=== PATIENT | female | born 1985 | race Asian ===

== ENCOUNTER 2020-07-30 07:38 | Emergency (ER) | payer OTHER, SELFPAY ==
[2020-07-30 08:06] VITALS: BP 127/83; PULSE 99; RESP 18; TEMP 37.5; O2SAT 99; BMI 27.4
--- NOTE | 2020-07-30 08:14 | ED_ITS ---
HPI - URI/Sore Throat General Chief Complaint: Upper Respiratory Symptoms Stated Complaint: covid symptoms Time Seen by Provider: 07/30/20 08:14 Source: patient Mode of arrival: ambulatory Limitations: no limitations History of Present Illness HPI Narrative: Patient went to a constitution party 7 days ago and then the mall 2 [place], now with cough, sore throat, myalgias and headache MD elicited complaint: sore throat, nasal congestion and other (myalgias) Onset (ago): day(s) Consistency: constant Severity: mild Context: sick contacts Associated symptoms: denies other symptoms Related Data Allergies Allergy/AdvReac Type Severity Reaction Status Date / Time No Known Allergies Allergy Unverified 05/13/20 17:20 Review of Systems Constitutional: Constitutional: Reports no additional constitutional complaints Eyes: Eyes: Reports no additional eye complaints ENT: Denies dizziness Cardiovascular: Cardiovascular: Reports no additional cardiovascular complaints Respiratory: Respiratory: Reports as per HPI Gastrointestinal: Gastrointestinal: Reports no additional gastrointestinal complaints Genitourinary: Genitourinary: Reports no additional female genitourinary complaints Musculoskeletal: Musculoskeletal: Reports no additional musculoskeletal complaints Integumentary/Breasts: Skin/Breast: Denies rash Neurologic: Reports system reviewed and no additional complaints, except as documented, Denies dizziness and Denies Sensory deficit (Neuro) Psychiatric: Psychiatric: Denies anxiety Physical Exam Vital Signs: Vital Signs: Last Vital Signs Temp 99.5 F 07/30/20 08:06 Pulse 99 07/30/20 08:06 Resp 18 07/30/20 08:06 BP 127/83 07/30/20 08:06 Pulse Ox 99 07/30/20 08:06 Body Mass Index 27.4 Const: General: healthy appearing Nutritional Appearance: average body habitus Orientation/consciousness: oriented to person and patient oriented x3 Limitations: no limitations HENMT: Head: Yes normal to inspection Ears: external ears normal General nose exam: Normal external nose present Mouth: Normal oral and palatal mucosa present and oropharynx normal Throat: Yes posterior oropharynx normal Eyes: General: appearance normal, both eyes and all related structures Neck: Other: supple Neck: Yes normal visual inspection Chest: Chest palpation & inspection: normal inspection of the chest Resp: Auscultation: clear to auscultation bilaterally Cardio: Jugular venous distension: no JVD Rate: regular rate Rhythm: regular rhythm Heart sounds: S1 normal heart sound present and S2 normal heart sound present GI: Inspection: Yes normal to inspection Palpation (GI): Soft to palpation, nontender and No hepatosplenomegaly present Auscultation: normal bowel sounds : General: Yes no CVA tenderness Back/Spine/Pelvis: Back: no CVA tenderness Skin: General skin exam: no rashes or lesions noted Neuro: General: oriented to person and patient oriented x3 Cranial nerves: Yes CN's II-XII intact bilaterally Motor exam (neuro): 5/5 motor strength present throughout Sensory Exam: No Sensory deficit (Neuro) Extrem: General: Yes normal to inspection Psych: Appearance: grossly normal Course Course Course Narrative: patient with likely COVID will test MDM - URI/Sore Throat MDM Narrative Medical decision making narrative: Normal vitals, not toxic, will dc home Differential Diagnosis Differential diagnosis: Likely upper respiratory infection Discharge Plan Discharge Clinical Impression: COVID-19 Upper respiratory infection Qualifiers: URI type: unspecified viral URI Qualified Code(s): J06.9 - Acute upper respiratory infection, unspecified Patient Disposition: Home, Self-Care Instructions: COVID-19 (Coronavirus Disease 2019) (ED) Referrals: Physician,None [Primary Care Provider] - 2 days
== END 2020-07-30 08:28 | disposition home or self-care (01) ==
PROVIDERS: Emergency Provider Emergency Medicine
DX: U07.1 COVID-19 (principal); J06.9 Acute upper respiratory infection, unspecified; R05 Cough; R51.9 Headache, unspecified; M79.10 Myalgia, unspecified site
CPT/HCPCS: 99283; U0003

== ENCOUNTER 2020-08-08 16:04 | Emergency (ER) | payer OTHER, SELFPAY ==
--- NOTE | 2020-08-08 16:13 | XR_ITS ---
EXAMINATION: XR CHEST CLINICAL INFORMATION: Positive Covid status with shortness of breath COMPARISON: None TECHNIQUE: Frontal view of the chest was obtained. FINDINGS: Normal cardiomediastinal silhouette. Mild hypoinflation of the lungs. No focal consolidation. No pleural effusion or pneumothorax. No acute osseous abnormality. XR/XR chest 1V IMPRESSION: Low lung volumes. No acute disease.
[2020-08-08 16:48] VITALS: BP 131/79; PULSE 90; RESP 20; TEMP 37; O2SAT 99; BMI 27.4
[2020-08-08] MEDS: guaiFEN/Codeine SF 200/20/10ML 10 ML LIQUID PO (17:04)
[2020-08-08] MEDS: dexAMETHasone 2 MG TABLET 10 MG PO (17:04)
--- NOTE | 2020-08-08 17:12 | ED.URI ---
HPI - URI/Sore Throat General Chief Complaint: Upper Respiratory Symptoms Stated Complaint: COVID POS Time Seen by Provider: 08/08/20 16:13 Source: patient Mode of arrival: ambulatory Limitations: no limitations History of Present Illness HPI Narrative: Patient otherwise healthy got COVID positive on 07/30 been doing fine for last 4 days having low-grade fever and increased dry cough and shortness of breath especially on ambulation patient checked her pulse ox dropped to 91% and then immediately improved to 93% on arrival patient was saturating 98% at room air MD elicited complaint: fever and cough Related Data Previous Rx's Medication Instructions Recorded benzonatate [Tessalon Perles] 100 mg PO TID PRN #20 cap 08/08/20 dexamethasone [Decadron] 6 mg PO DAILY #7 tab 08/08/20 Allergies Allergy/AdvReac Type Severity Reaction Status Date / Time No Known Allergies Allergy Unverified 05/13/20 17:20 Review of Systems Review of Systems: REVIEW OF SYSTEMS: Pertinent positives and negatives are stated above in the history. GEN: no fevers, chills, fatigue HEENT: no nasal congestion, sore throat, ear pain NEURO: no headache, dizziness, focal weakness PULM: Dry cough with shortness of breath CV: no chest pain, palpitations, LE edema ABD: no abdominal pain, nausea, vomiting, diarrhea : no dysuria, urgency, frequency SKIN: no rash ROS otherwise negative x 10 PMFSH Past Medical History Medical History Cholecystectomy planned Social History Social History Advance Directives: No Advance Directives Information Provided: No Physical Exam Vital Signs: Vital Signs: Last Vital Signs Temp 98.6 F 08/08/20 16:48 Pulse 90 08/08/20 16:48 Resp 20 08/08/20 16:48 BP 131/79 08/08/20 16:48 Pulse Ox 99 08/08/20 16:48 Body Mass Index 27.4 Appearance: Alert. Oriented X3. No acute distress. Eyes: Pupils equal, round and reactive to light. ENT: Pharynx normal. Neck: Normal inspection. Neck supple. CVS: Normal heart rate and rhythm. Pulses normal. Respiratory: No respiratory distress. Breath sounds normal. Frequent dry cough Abdomen: Soft and nontender. Skin: Skin warm and dry. Normal skin color. Normal skin turgor. Extremities: No lower extremity edema. Good range of movement Neuro: Oriented X 3. No motor deficit. No sensory deficit. MDM - URI/Sore Throat MDM Narrative Medical decision making narrative: Patient COVID positive chest x-ray negative for any acute infiltrate on exertion patient feels short of breath to 91% but at resting it improved to 98% at this time there is no x-ray findings of worsening of COVID will give her a course of Decadron and cough syrup Lab Data Attestation: I reviewed the patient's lab results. Discharge Plan Discharge Clinical Impression: COVID-19 Patient Disposition: Home, Self-Care Instructions: COVID-19 (Coronavirus Disease 2019) (ED) Additional Instructions: Tylenol for fever, cough syrup as advised. Social distancing is advised. Take medication as prescribed Prescriptions: New dexamethasone [Decadron] 6 mg tablet 6 mg PO DAILY Qty: 7 RF: 0 benzonatate [Tessalon Perles] 100 mg capsule 100 mg PO TID PRN (Reason: cough) Qty: 20 RF: 0
== END 2020-08-08 17:26 | disposition home or self-care (01) ==
PROVIDERS: Emergency Provider Internal Medicine
DX: U07.1 COVID-19 (principal); R50.9 Fever, unspecified; R05 Cough; Z79.899 Other long term (current) drug therapy
CPT/HCPCS: 71045; 99283; J8540

== ENCOUNTER 2022-07-19 18:05 | Outpatient (REF) | payer OTHER, SELFPAY ==
[2022-07-19 18:56] LABS: Influenza A PCR POSITIVE (Negative); Influenza B PCR NEGATIVE (Negative); Resp Syncy Virus RNA Qual PCR NEGATIVE (Negative); SARS COV2 PCR INHOUSE NEGATIVE (Negative)
== END 2022-07-19 18:06 | disposition home or self-care (01) ==
LOC: HO.LNP 18:05
PROVIDERS: Visit Provider Internal Medicine
DX: Z20.822 Contact with and (suspected) exposure to COVID-19 (principal); R43.9 Unspecified disturbances of smell and taste
CPT/HCPCS: 0241U

== ENCOUNTER 2024-02-27 21:59 | Emergency (ER) | payer OTHER, SELFPAY ==
[2024-02-27 22:13] VITALS: BP 140/77; PULSE 90; RESP 18; TEMP 36.8; O2SAT 100; BMI 32.1
--- OUTSIDE RECORDS SUMMARY | 2024-02-28 03:10 | XMS_ITS | Continuity of Care Document ---
Author Organization [facility] Address [address] [place] [address], [address] [place] [address]- Care Team Providers Care Peeled Potato Inspector Name Role Phone Celestina Lincoln MD Primary Care Physician Encounter [facility] Date(s): 05/22/23 - 06/21/23 [facility] [address] [facility], [address] [place] [address]- Allergies, Adverse Reactions, Alerts No Known Medication Allergies Medications Magnesium Magnesium, 0 Refills, Maintenance, 05/25/23 8:45:00 EDT Start Date: 05/25/23 Status: Ordered omeprazole 40 mg oral enteric coated capsule 90 each, 0 Refill(s), TAKE 1 CAPSULE (40 MG TOTAL) BY MOUTH DAILY., 0 Refills, 05/25/23 8:41:00 EDT, Partial fill upon patient request if the prescription is for a schedule II opioid drug. Start Date: 05/25/23 Status: Ordered scopolamine 1 mg/72 hr transdermal film, extended release See Instructions, apply to skin behind the ear at bedtime the night before your procedure. remove patch after 72 hours. wash hand carefully after handling, # 1 patch, 0 Refills, Acute 07/24/23 13:27:00 EST, 06/03/23 13:25:00 EDT, [facility]/pharmacy #[id number], P... Start Date: 06/03/23 Stop Date: 07/24/23 Status: Ordered Slow Fe (as elemental iron) 45 mg oral tablet, extended release 0 Refill(s), 0 Refills, 05/25/23 8:41:00 EDT, Partial fill upon patient request if the prescriptionis for a schedule II opioid drug. Start Date: 05/25/23 Status: Ordered Vitamin D3 1000 intl units oral tablet 0 Refill(s), 0 Refills, 05/25/23 8:42:00 EDT, Partial fill upon patient request if the prescriptionis for a schedule II opioid drug. Start Date: 05/25/23 Status: Ordered Problem List Condition Confirmation Course Effective Dates Status H ealth Status Informant Cobalamin deficiency Confirmed 02/28/23 Active Gastroesophageal reflux disease without esophagitis 1 Confirmed 06/28/21 Active Impaired glucose tolerance Confirmed 06/28/21 Active Iron deficiency anemia 2 Confirmed 06/28/21 Active Mixed hyperlipidemia 3 Confirmed 11/30/21 Active Obese class I Confirmed Active Primary female infertility Confirmed Active Right upper quadrant pain 4 Confirmed 06/28/21 Active Steatosis of liver 5 Confirmed 07/14/21 Active Vitamin D deficiency 6 Confirmed 06/28/21 Active 1Outside Source Comment: Last Assessment & Plan: Has been on proton pump inhibitor for some time. Have asked her to try to cut back after Ramadan to 40 mg alternating with 20 mg and increase the frequency of the 20 mg until she vy 20 mg a day. If she remains stable on this have asked her to consider alternating the proton pump inhibitor with an H2 receptor foreign [Pepcid 40 mg] and follow similar schedule. 2Outside Source Comment: Last Assessment & Plan: Last blood work showed borderline hematocrit and borderline iron studies. She recently had a prolonged 20-day. Followed by significant fatigue. I have asked her to take iron supplements with Colace on a regular basis in the form of SloFe 3Outside Source Comment: Last Assessment & Plan: Due for repeat labs ordered 4Outside Source Comment: Last Assessment & Plan: Status post cholecystectomy in 2019. Since that time she states that she has persistent mild in chronic discomfort in the right upper quadrant. She has told this to her providers per patient. Has never had any imaging done to assess any retained stone. Unsure of last liver function test. Will order LFTs as well as ultrasound of abdomen. Examination shows that she is mildly tender in the right upper quadrant. 5Outside Source Comment: Overview: Per pcp notes [place] per ultrasound 09/07/20 6Outside Source Comment: Last Assessment & Plan: To check vitamin D levels now Social History Social History Type Response Smoking Status Never (less than 100 in lifetime) entered on: 05/25/23 Sex Patient Care team information Care Team Personnel Name: Celestina Lincoln MD Position: Reference Physician Member Role: PCP Address: Address: [address] [place], [place] [id number] [facility] [address] Care Team Related Persons Name: PANTERA WEST Address: home [address] [place] [id number]
--- OUTSIDE RECORDS SUMMARY | 2024-02-28 03:10 | XMS_ITS | Continuity of Care Document ---
Author Organization [facility] Address [address] [place] [address]- Care Team Providers Care Costuming Supervisor Name Role Phone Latonia GARNER, Celestina Primary Care Physician [phone] [place] [facility] Date(s): 06/29/23 - 07/29/23 [facility] [address] [place] [address]- Attending Physician: Juan Antonio Hall Admitting Physician: Juan Antonio Hall Referring Physician: Admtr, [id number] Allergies, Adverse Reactions, Alerts No Known Medication [...] opioid drug. Start Date: 05/25/23 Status: Ordered Slow Fe (as elemental iron) [...] Care team information Care Team Personnel Name: Latonia GARNER, Celestina Position: Reference Physician Member Role: PCP Address: Address: [facility] [address] [place] [address]- [place] Care Team Related Persons Name: PANTERA WEST Address: home [address] [place] [id number]
--- OUTSIDE RECORDS SUMMARY | 2024-02-28 03:10 | XMS_ITS | Continuity of Care Document ---
Author Organization [facility] Address [address] [place] [address]- Care Team Providers Care Regulatory Compliance Director Name Role Phone Celestina Lincoln MD Primary Care Physician [phone] Encounter [facility] [place] [facility] [id number] Date(s): 06/01/23 - 07/29/23 [facility] [address] [place] [address]- Attending Physician: Maggie Hart MD Allergies, Adverse Reactions, Alerts No Known Medication [...] Reference Physician Member Role: PCP Address: Address: [address] [place] [address] [address] [facility] [address] [place] [address]- Care Team Related Persons Name: PANTERA WEST Address: home [address] [place] [id number]
--- OUTSIDE RECORDS SUMMARY | 2024-02-28 03:10 | XMS_ITS | Continuity of Care Document ---
Author Organization [facility] ter Address [address] [place] [address]- Care Team Providers Care Crt Name Role Phone Latonia GARNER, Celestina Primary Care Physician Encounter [facility] [place] Date(s): 06/14/23 - 06/14/[address] [address]- Discharge Disposition: A-D/C Home Attending Physician: Maggie Hart MD Admitting Physician: Maggie Hart MD Referring Physician: Maggie Hart MD Allergies, Adverse Reactions, [...] Acute 07/24/23 13:27:00 EST, 06/03/23 13:25:00 EDT, [facility]/pharmacy #[id number], P... Start Date: 06/03/23 Stop Date: [...] Plan: To check vitamin D levels now Procedures Procedure Date Related Diagnosis Body Site Status Hysteroscopy, surgical; with sampling (biopsy) of endometrium and polypectomy, with D & C 06/14/23 Complete d Vital Signs Most recent to oldest [Reference Range]: 1 2 3 Height 160 cm (06/14/23 12:29 PM) 160 cm (06/12/23 2:21 PM) Weight 82.4 kg (06/14/23 12:29 PM) 82.4 kg (06/12/23 2:21 PM) Oxygen Saturation [94-100 %] 98 % (06/14/23 2:30 PM) 97 % (06/14/23 2:15 PM) 97 % (06/14/23 2:00 PM) Pulse Rate [55-90 bpm] 68 bpm (06/14/23 12:29 PM) Body Mass Index [18.5-24.99 kg/m2] 32.19 kg/m2 *>HHI* (06/14/23 12:29 PM) 32.19 kg/m2 *>HHI* (06/12/23 2:21 PM) Blood Pressure [90-138/55-84 mm Hg] 113/77mm Hg (06/14/23 2:15 PM) 103/67mm Hg (06/14/23 2:00 PM) 111/73mm Hg (06/14/23 1:45 PM) Respiratory Rate [16-30 br/min] 17 br/min (06/14/23 2:30 PM) 14 br/min *L* (06/14/23 2:15 PM) 18 br/min (06/14/23 2:00 PM) Temperature [96.8-100.4 DegF] 97.4 DegF (06/14/23 2:30 PM) 97.6 DegF (06/14/23 1:30 PM) 98.4 DegF (06/14/23 12:29 PM) Liters per Minute 5 L/min (06/14/23 1:45 PM) 5 L/min (06/14/23 1:30 PM) Mode of Delivery (Oxygen) Room air (06/14/23 2:30 PM) Room air (06/14/23 2:00 PM) Simple face mask (06/14/23 1:45 PM) Blood pressure sites Arm, left (06/14/23 12:29 PM) Temperature Route Temporal (06/14/23 2:30 PM) Temporal (06/14/23 1:30 PM) Temporal (06/14/23 12:29 PM) Dry Weight 83.2 kg (06/14/23 12:29 PM) 82.4 kg (06/12/23 2:21 PM) Dry Weight Obtained Via Standing scale (06/14/23 12:29 PM) Social History Social History Type Response Smoking Status Never (less than 100 in lifetime) entered on: 05/25/23 Sex Note * Kat Mendoza RN: PERFORM Event Display: Discharge/Transfer Note Hospital Authored Date: [id number] Nursing Discharge Note Entered On: 06/14/2023 14:50 EDT Performed On: 06/14/2023 14:50 EDT by Kat Mendoza RN Nursing Discharge Note 2 Discharge Time : 06/14/2023 14:48 EDT Discharge Level of Care at Discharge : Home/Senior Living/Foster Care Patient Left Unit Via : Wheelchair Patient Accompanied Off Unit with : Parent DC Instructions Provided & Signed by Pt : Yes Patient Understands D/C Instructions : Yes Verbalized Understanding of D/C Plan By : Patient Patient Instructions Discharge Signed : Yes Did Pt have Specialty Bed or Wound Vac : No Kat Mendoza RN - 06/14/2023 14:50 EDT * Kat Mendoza RN: PERFORM Event Display: Patient Education/Instruction Authored Date: [id number] Inpatient Adult Discharge Instructions [address] [address] Name: FUENTES ALVARADO : 1985 Visit: 06/14/2023 12:03:00 Current Date: 06/14/2023 14:12 Account: [id number] Inpatient Adult Discharge Instructions We would like to thank you for allowing us to assist you with your healthcare needs. The following includes patient education materials and information regarding your injury/illness. Our entire staffstrives to provide an excellent experience for our patients and their families. PLEASE ENSURE YOU FOLLOW-UP PER THE INSTRUCTIONS BELOW! ?? YOUR OPINION IS IMPORTANT TO US! Please complete the survey you may receive by mail or email. Your feedback will be used to make improvements to the healthcare experiences of our patients and their families. Surveys are administered by [employer] ?? If further treatment with your primary care physician or another doctor is recommended, it is important for you to keep the appointment. Call your primary care physician or return to the Emergency Department immediately if your condition worsens, fails to improve, or new symptoms develop. If you need to find a doctor, you can call [facility] for a referral at [phone] or toll free at [phone]) or log in to [email or web address].. ?? [facility], in keeping with [facility] guidance, no longer requires face masks for staff, patientsor visitors in most situations. Similiar to time spent indoors at other locations, there is the chance that you were exposed to repiratory viruses during your time with us (such as flu or COVID-19). If you develop symptoms concerning for a viral respiratory infection, please seek testing (and treatment if indicated) from your medical provider or home test kit. ?? You can view and manage your care through the patient portal or by using a health care panda of your choosing. [employer] is a website that allows you to securely view your medical information including your hospital discharge summary, office visit summaries, medications and follow-up visits. You can also request appointments, renew medications, and request access to your medical information using a health care panda of your choosing, or just ask a question. You can enroll at [email or web address] or register during your next office visit. You have been discharged from [facility], Patient Care Unit: [facility]. If you have any questions regarding these instructions after you leave, please call us and we will be happy to assist you. [facility] Your Care Team Attending Physician Maggie Hart MD Discharging Providers Maggie Hart MD Reason for Admission ENDOMETRIAL POLYP HYSTEROSCOPY DS CS Your Diagnosis Endometrial polyp Primary female infertility Tests Performed Below is a partial list of the tests performed during your hospitalization. You may have had other tests and procedures not included in this list. Please discuss all test results with your provider. Primary Care Provider Latonia GARNER, Celestina Advance Directive Health Care Proxy on File No Discharge Vitals Temperature: 97.6 DegF Height: 160 cm Pulse Rate: 68 bpm Weight: 82.4 kg Respiratory Rate: 18 br/min Body Mass Index:??32.19 kg/m2??Critical Systolic Blood Pressure: 103 mm Hg Body surface area: 1.91 Diastolic Blood Pressure: 67 mm Hg ?? Oxygen Saturation: 97 % ?? Studies Pending All tests and labs ordered during this hospital stay have been completed unless listed below. Please discuss all pending results with your provider listed above in these instructions. ?? No incomplete studies found What to do next Instructions From Your Doctor Discharge Orders Instructions from your Care Team Next Motrin dose at 6PM! Next Tylenol dose at 9PM! ?? *You can expect some mild bleeding for the next couple of days. Wear a pad in underwear! *[id number] cramping can occur. Take Tylenol or Ibuprofen for pain control. Scheduled Follow-Up Appointments Sunday 11:40 AM EDT ?? With: Maggie Hart MD Where: [facility] [address] [place] [address]- Status: Pending You Need to Schedule the Following Appointments Follow Up with??Maggie Hart MD Where: [address] [place] [address]- Discharge Medications JENNY, FUENTES :1985 Visit Date:06/14/2023 Medications: Please continue your medications until treatment is completed or stopped by your provider. Medications not listed below should be discontinued. Discuss any questions related to medications with your provider. What How Much When Instructions Next Dose Unchanged Cholecalciferol (Vitamin D3 1000 intl units oral tablet) 0 Refill(s) ?? Unchanged Ferrous Sulfate (Slow Fe (as elemental iron) 45 mg oral tablet, extended release) 0 Refill(s) ?? Unchanged Miscellaneous Rx (Magnesium) Unchanged Omeprazole (omeprazole 40 mg oral enteric coated capsule) 90 each, 0 Refill(s), TAKE 1 CAPSULE (40 MG TOTAL) BY MOUTH DAILY. ?? Unchanged Scopolamine (scopolamine 1 mg/ 72 hr transdermal film, extended release) See instructions apply to skin behind the ear at bedtime the night before your procedure. remove patch after 72 hours. wash hand carefully after handling ?? Test Results Below is a partial list of the most recent Laboratory test results done prior to this discharge. You may have had other tests and procedures not included in this list. Please discuss all test resultswith your provider. Allergies (NKA means No Known Allergies) No Known Medication Allergies Problems Active Problems??(10) Cobalamin deficiency?? Gastroesophageal reflux disease without esophagitis?? Impaired glucose tolerance?? Iron deficiency anemia?? Mixed hyperlipidemia?? Obese class I?? Primary female infertility?? Right upper quadrant pain?? Steatosis of liver?? Vitamin D deficiency?? Education Materials Below is the list of Educational Leaflet Providered with your Discharge Instructions. Surgery Medical Daystay Surgical Overnight Discharge Instructions?NSAID Analgesic Schedule?? Valuables and Belongings I fully understand and agree that [facility] accepts no responsibility for all my personal property including clothing, toilet articles, radios, jewelry, dentures, hearing aids, rings, money, or any other property that is in my possession or is brought to me after admission. I understand certain valuables may be placed in a hospital safe for a short period of time. I understand that the hospital is not liable for loss or damage due to accident, fire, or other natural occurrence while said property is in the safe. I accept full responsibility for any personal property that I keep with me, and will not hold the hospital responsible in case of loss or disappearance. I acknowledge that i have been encouraged to send valuables and belongings home. ?? Review of Valuable and Belonging List: With patient Date for Pt to Sign Valuables/Belongings: 06/14/23 12:39:00 ?? Valuables & Belongings ?? Clothes Electronic devices Jewelry Monetary Items Personal devices Miscellaneous Medications (Valuables) Valuables at Bedside Pants, Shirt, Shoes Cell phone Earrings ?? Glasses ? Valuables Sent Home ? Valuables Sent to Security ? Other Discharge Information ? Pulmonary Rehab Status?? Pulmonary Rehab Discharge Status?? Respiratory Rate: 18 br/min ? Common Emergency Awareness Tips IS IT A STROKE? Act FAST and Check for these signs: FACE Does the face look uneven? ARM Does one arm drift down? SPEECH Does their speech sound strange? TIME Call at any sign of stroke ?? Heart Attack Signs Chest discomfort: Most heart attacks involve discomfort in the center of the chest and lasts more than a few minutes, or goes away and comes back. It can feel like uncomfortable pressure, squeezing, fullness or pain. Discomfort in upper body: Symptoms can include pain or discomfort in one or both arms, back, neck, jaw or stomach. Shortness of breath: With or without discomfort. Other signs: Breaking out in a cold sweat, nausea, or lightheaded. Remember, MINUTES DO MATTER. If you experience any of these heart attack warning signs, call to get immediate medical attention! ?? Smoking can increase your chances of developing chronic health problems and can cause harmful effects to other family members in your house. If you smoke, you are strongly encouraged to quit. Please call [facility] at [phone] or 5-842-628-Stamp.it ([phone]) or log in to [email or web address] for referrals to smoking cessation programs. ?? 428 Suicide & Crisis Lifeline is available 19/03 if you or someone you know needs to find a reason to keep living. By calling 573 you'll be connected to a skilled, trained counselor at a crisis center in your area. INPATIENT DISCHARGE INSTRUCTIONS SIGNATURE PAGE FUENTES ALVARADO Location:[facility] Registration Date and Time:06/14/2023 12:03 EDT Primary Care Physician: Celestina Lincoln MD, Attending Physician: Maggie Hart MD, I FUENTES ALVARADO, have received the above patient education materials/instructions and have verbalized understanding. If ambulance or transport services are being used I further acknowledge being given a choice of service. ?? If you need to contact me, please call me at this number: . Patient/Cyber Incident Analyst Name: Patient/Cyber Incident Analyst Signature: Relationship to Patient: Witness Name/Signature: Date: * Kat Mendoza RN: PERFORM Event Display: Patient Education Leaflets Authored Date: [id number] Surgery Medical Daystay Surgical Overnight Discharge Instructions ?? 295 Medical Daystay/Surgical Overnight Discharge Instructions ? Since your coordination and judgment may be altered by medication and/or anesthesia, a responsible adult must drive you home from the hospital. ? If you have received medication for pain or sedation while under our care, you should not drive, operate machinery, drink alcohol, or sign any legal documents for 24 hours.?? You should have someone with you at home tonight. ? Remain at home the day of discharge.?? You may be up and about unless otherwise instructed by your physician. ? You may resume your daily prescription medication schedule.?? Any depressant medication should be avoided for 24 hours unless otherwise instructed by your surgeon or anesthesiologist. ? Call your physician for a follow-up appointment.? If you experience unusual or severe pain not relied by your pain medication, excessive bleedingor drainage, persistent nausea and vomiting, excessive swelling or redness, foul odor from incisionsite or fever over 100.6F, you need to call your physician. ? A follow-up phone call by a nurse will be made the day after your procedure.?? If you have stayed with us over night, you will not be receiving a follow-up phone call. ? Nausea and vomiting are a common side effect of prescription pain medication.?? We recommend that pills are not taken on an empty stomach.?? While taking any prescription pain medication you should not drive or drink alcohol. ? * Kat Mendoza RN: PERFORM Event Display: Patient Education Leaflets Authored Date: [id number] NSAID Analgesic Schedule ?? 604 NSAID???s Analgesic Schedule ?? Pain is the primary source of illness following your procedure and can include dehydration, difficulty and painful swallowing, and weight loss. These symptoms can lead to increased post-operative visits and hospital readmission. The best way to control pain is to take pain medications regularly. Your doctor has recommended both Ibuprofen and Acetaminophen (generic/store brands are okay, too). These can be picked up over the counter at your pharmacy of choice. Follow the instructions on the bottle to determine the proper dosage to give. The simplest way to take these medications it to rotate the two at 3-hour intervals. Here is a sample diagram. The time you take your medications may vary from this example. Do not give Ibuprofen more than every 6 hours or Acetaminophen every 4 hours. Do not give Acetaminophen if your doctor has given you a prescription that contains Acetaminophen. ? Patient Care team information Care Team Personnel Name: Celestina Lincoln MD Position: Reference Physician Member Role: PCP Address: Address: [facility] [address] [place] [address]- Care Team Related Persons Name: PANTERA WEST Address: home [address] [place] [id number]
--- OUTSIDE RECORDS SUMMARY | 2024-02-28 03:10 | XMS_ITS | Continuity of Care Document ---
Author Organization [facility] Address [address] [place] [address]- Care Team Providers Care Small Animal Caretaker Name Role Phone Latonia GARNER, Celestina Primary Care Physician [place] [facility] Date(s): 05/08/23 - 06/07/23 [facility] [address] [place] [address]- Allergies, Adverse Reactions, Alerts No Known Medication [...] Acute 07/24/23 13:27:00 EST, 06/03/23 13:25:00 EDT, [facility]/pharmacy #[id number], P... Start Date: 06/03/23 Stop [...] Reference Physician Member Role: PCP Address: Address: [address] [place] [address] [address] [facility] [address] [place] [address]- Care Team Related Persons Name: PANTERA WEST Address: home [address] [place] [address]
--- OUTSIDE RECORDS SUMMARY | 2024-02-28 03:10 | XMS_ITS | Continuity of Care Document ---
Author Organization [facility] Address [address] [place] [address]- Care Team Providers Care Vascular Neurologist Name Role Phone Latonia GARNER, Celestina Primary Care Physician Encounter [facility] [place] [place] Date(s): 05/25/23 - 06/01/23 [facility] [address] [place] [address]- Attending Physician: Maggie Hart MD Referring Physician: Celestina Lincoln MD Allergies, Adverse Reactions, Alerts No Known [...] Procedure Date Related Diagnosis Body Site Status Saline infusion sonohysterog germaine with suggestion of endometrial polyp on imaging 2023 Completed Cholecystectomy- laparoscopic 2019 Completed [place] tooth 2010 Completed Vital Signs Most recent to oldest [Reference Range]: 1 Height 160.02 cm (05/25/23 8:40 AM) Weight 82.4 kg (05/25/23 8:40 AM) Body Mass Index [18.5-24.99 kg/m2] 32.18 kg/m2 *>HHI* (05/25/23 8:40 AM) Blood Pressure [90-138/55-84 mm Hg] 108/ 72mm Hg (05/25/23 8:40 AM) Blood pressure sites Arm, left (05/25/23 8:40 AM) Dry Weight 82.4 kg (05/25/23 8:40 AM) Weight Obtained Via Standing scale (05/25/23 8:40 AM) Dry Weight Obtained Via Standing scale (05/25/23 8:40 AM) Social History Social History Type Response Smoking Status Never (less than 100 in lifetime) entered on: 05/25/23 Sex Patient Care team information Care Team Personnel Name: Latonia GARNER, Celestina Position: Reference Physician Member Role: PCP Address: Address: [address] [place] [address] [address] [facility] [address] [place], [place] [id number] [place] [address] Care Team Related Persons Name: PANTERA WEST Address: home [address] [place] [address]
== END 2024-02-28 03:10 | disposition left against medical advice (07) ==
LOC: HO.ED 02-28 03:09
PROVIDERS: Emergency Provider Emergency Medicine
DX: M54.2 Cervicalgia (principal)
CPT/HCPCS: 99281